=== PATIENT | female | born 1960 | race African-American/Black ===

== ENCOUNTER 2017-03-10 07:11 | Day surgery (SDC) | payer BC, OTHER ==
[2017-03-07 14:47] VITALS: BMI 40.3
[2017-03-10] MEDS ORDERED: LIDOCAINE HCL/PF 2% SDV 5ML VIAL ONE (08:39)
[2017-03-10] MEDS ORDERED: PROPOFOL 20 ML ONE ×3 (08:39)
[2017-03-10 08:43] VITALS: TEMP 7.6
[2017-03-10 10:57] VITALS: BP 132/76; PULSE 82
== END 2017-03-10 09:45 | disposition home or self-care (01) ==
LOC: JASU-ENDO 07:11
PROVIDERS: ATTEND Internal Medicine Gastroenterology
PROC: 0DJD8ZZ Inspection of Lower Intestinal Tract, Via Natural or Artificial Opening Endoscopic (ICD-10-PCS; principal; 2017-03-10 08:00)
DX: Z12.11 Encounter for screening for malignant neoplasm of colon (principal); Z80.0 Family history of malignant neoplasm of digestive organs; K57.30 Diverticulosis of large intestine without perforation or abscess without bleeding

== ENCOUNTER 2024-01-02 04:23 | Day surgery (SDC) | payer BC, OTHER ==
[2024-01-01 13:19] VITALS: BMI 46.0
[2024-01-02 09:36] VITALS: TEMP 98.7
[2024-01-02 10:09] VITALS: RESP 18
[2024-01-02 10:15] VITALS: BP 106/63; PULSE 80
== END 2024-01-02 10:30 | disposition home or self-care (01) ==
LOC: JASU-ENDO 04:23
PROVIDERS: ATTEND Internal Medicine Gastroenterology
PROC: 0DB98ZX Excision of Duodenum, Via Natural or Artificial Opening Endoscopic, Diagnostic (ICD-10-PCS; 2024-01-02)
PROC: 0DB78ZX Excision of Stomach, Pylorus, Via Natural or Artificial Opening Endoscopic, Diagnostic (ICD-10-PCS; 2024-01-02)
PROC: 0DB68ZX Excision of Stomach, Via Natural or Artificial Opening Endoscopic, Diagnostic (ICD-10-PCS; 2024-01-02)
PROC: 0DJD8ZZ Inspection of Lower Intestinal Tract, Via Natural or Artificial Opening Endoscopic (ICD-10-PCS; principal; 2024-01-02 09:00)
DX: Z12.11 Encounter for screening for malignant neoplasm of colon (principal); Z80.0 Family history of malignant neoplasm of digestive organs; K57.30 Diverticulosis of large intestine without perforation or abscess without bleeding; K29.70 Gastritis, unspecified, without bleeding; K44.9 Diaphragmatic hernia without obstruction or gangrene
CPT/HCPCS: 43239; G0105; 88305-TC; 88342-TC